=== PATIENT | female | born 1990 | race Caucasian/White ===

== ENCOUNTER 2016-12-22 21:14 | Emergency (ER) | payer BC ==
[2016-12-22 21:37] VITALS: BP 112/66
[2016-12-22] MEDS ORDERED: ONDANSETRON 4 MG TAB.RAPDIS PO ONE ×2 (22:05→22:17)
[2016-12-22] MEDS ORDERED: ONDANSETRON 4 MG TAB.RAPDIS ONE ×2 (22:07→22:20)
--- OUTSIDE RECORDS SUMMARY | 2016-12-22 22:07 | XMS REPORT | Continuity of Care Document ---
:1990 Author Organization [facility] ([facility]) Address [address] [place] [address] Phone [phone] Care Team Providers Name Role Phone Unavailable Primary Care Provider Unavailable Source Comments This disclosure is being made pursuant to the Care Everywhere program, applicable federal and state laws, and may not contain all informaitonavailable regarding this patient.[facility] ([facility]) Active Allergies and Adverse Reactions Not on File Current Medications Not on file Active Problems Not on file Social History Tobacco Use Types Packs/Day Years Used Date Never Assessed Plan of Care Health Maintenance Due Date Last Done Comments Hepatitis B Vaccine (1 of 3 - Primary Series) 1991 HPV Vaccine (1 of 3 - Female/Unknown 3 Dose Series) 2002 Tdap Vaccine 2002 Cervical Cancer Screening 2009 Lipid Disorder Screening 2009 MMR Vaccine 2009 Td Vaccine 2009 Varicella Vaccine (1 of 2 - Adult - No Evidence of 2009 Immunity) Influenza Vaccine: Seasonal (#1) 02/15/2016 Results from Last 3 Months Not on file
--- NOTE | 2016-12-22 22:21 | ERNOTE ---
Medical Problem HPI - General Chief Complaint: Nausea/Vomiting Time Seen by Provider: 12/22/16 21:55 Source: patient Exam Limitations: no limitations - Immun/Allergies/Home Medications Immunizations: IMMUNIZATION HX Immunizations Up to Date Yes Allergies/Adverse Reactions: Allergies No Known Allergies Allergy (Unverified 12/22/16 21:37) Home Medications: HOME MEDICATIONS NK [No Home Medication] 12/22/16 [Last Taken Unknown] - History of Present History Narrative: Pt has been vomiting and having diarrhea all day today. She has not been able to keep anything down. Pt refuses IV access or any blood work tue to fear of needles. Timing: constant Severity: moderate Modifying Factors - (Worsens): Present: eating Review of Systems - Review of Systems Constitutional: Absent: recent illness EYE: Present: no symptoms reported ENT: Present: no symptoms reported Respiratory: Absent: shortness of breath, cough Cardiology: Present: no symptoms reported Gastrointestinal/Abdominal: Present: See HPI Genitourinary: Absent: frequency, pain Musculoskeletal: Present: no symptoms reported Skin: Present: no symptoms reported Neurological: Present: no symptoms reported Endocrine: Present: no symptoms reported Hematologic/Lymphatic: Present: no symptoms reported Psych: Present: no symptoms reported - Patient's Past Medical History Patient History - Medical: Other Patient History - Cardiac/Respiratory: No pertinent hx Patient History - Cancer: No Hx of Cancer Patient History - Surgical Procedures: No surgical history Patient History - Other: None - Social History Living Situations: home Psych History: No pertinent hx Smoking Status: Current every day smoker Alcohol Use: occasionally Drug Use: none - Immunizations Immunizations Up to Date: Yes Physical Exam - Physical Exam General Appearance: Present: wd/wn, alert, no apparent distress Neck: Present: normal inspection, nontender Respiratory: Present: no respiratory distress, no accessory muscle use Gastrointestinal/Abdominal: Present: tenderness - LUQ- mild, abnormal bowel sounds - mildly hyperactive. Absent: guarding, rebound Back Exam: Present: normal inspection, normal range of motion, no CVA tenderness Extremity Exam: Present: normal inspection, normal range of motion, no edema Neurological Exam: Present: alert, oriented, normal mood/affect Skin Exam: Present: normal color, warm/dry ED Progress - Vital Signs Vital Signs: Vital Signs 12/22/16 21:32 Temperature 36.9 C Pulse Rate 73 Respiratory 18 Rate Blood Pressure 112/66 O2 Sat by Pulse 100 Oximetry - Progress/Reassessment Chief Complaint: Nausea/Vomiting Progress Note-Subjective: 12/23/16 02:59 After pt refused all testing and treatment that involved IV access, I suggested ODT zofran and dilute rehydration fluid and observation for 30 minutes to assure that she could hold it down. Pt agreed to that plan. When nursing administered ODT zofran pt stated that she could not wait for 30 minutes and needed to go home and would like a work excuse for tonight. Discharge instructions and work excuse for today only given. Departure - Departure Clinical Impression: Gastroenteritis Disposition: Home self-care Condition: Good Instructions: Viral Gastroenteritis, Adult, [id number] Additional Instructions: sips of watered down gatoraid or juice for the next 12-24 hours then slowly resume normal diet starting with the BRAT diet.
== END 2016-12-22 22:26 | disposition home or self-care (01) ==
LOC: ER 21:14
DX: A08.4 Viral intestinal infection, unspecified (principal); Z72.0 Tobacco use